=== PATIENT | female | born 1980 | race Caucasian/White ===

== ENCOUNTER 2016-09-03 07:59 | Inpatient (IN) | payer MEDICAID ==
[~2016-09-03 07:59] MED LIST: Morphine 2 MG/ML Syringe IVPUSH PRN; Ondansetron 4 MG Tab.DIS PO PRN; Ondansetron 4 MG/2 ML SDV IVPUSH PRN; Promethazine 25 MG Tab PO PRN; diphenhydrAMINE 25 MG Cap PO PRN
[2016-09-03] MEDS ORDERED: Bupivacaine 0.25%/EPINEPHrine 1:200,000 10 ML SDV INJECT ONE (08:00)
[2016-09-03] MEDS ORDERED: ceFAZolin 2 GM in Premix Bag 1 BAG IV ONE (08:00)
[2016-09-03] MEDS ORDERED: fentaNYL 250 MCG/5 ML SDV ONE ×2 (08:32→11:11)
[2016-09-03] MEDS: Lactated Ringers 1,000 ML IV SCH (08:34)
--- NOTE | 2016-09-03 09:03 | PCM.PREANE ---
Preanesthetic Assessment - Anesthesia/Transfusion/Family Hx Anesthesia History: Prior Anesthesia Without Reaction Other Type of Anesthesia Reaction Comment: Denies any known problem with 1 prior anesthesia Family History of Anesthesia Reaction: No Transfusion History: Prior Transfusion Without Reaction Intubation History: Unknown - Review of Systems General: No Symptoms Pulmonary: No Symptoms Cardiovascular: No Symptoms Gastrointestinal: No symptoms Neurological: No Symptoms Other: Reports: None - Physical Assessment O2 Sat by Pulse Oximetry: 99 Respiratory Rate: 16 Vital Signs: Last Vital Signs Temp 36.3 C 09/03/16 08:32 Pulse 80 09/03/16 08:32 Resp 16 09/03/16 08:32 BP 137/82 09/03/16 08:32 Pulse Ox 99 09/03/16 08:32 Height: 1.63 m Weight: 101.605 kg ASA Class: 2 Mental Status: Alert & Oriented x3 Airway Class: Mallampati = 2 Dentition: Reports: Normal Dentition Thyro-Mental Finger Breadths: 3 Mouth Opening Finger Breadths: 3 ROM/Head Extension: Full Lungs: Clear to auscultation, Normal respiratory effort Cardiovascular: Regular Rate, Regular Rhythm - Lab Values: Laboratory Last Values Urine HCG, Qual NEGATIVE (NEGATIVE) 09/03/16 08:03 - Allergies Allergies/Adverse Reactions: Allergies Allergy/AdvReac Type Severity Reaction Status Date / Time Clear IV tape Allergy Itching Uncoded 04/12/15 11:32 MRI Contrast Allergy Hives Uncoded 11/07/14 14:00 Oxycodone Allergy Dizziness Uncoded 04/12/15 11:32 - Blood Blood Available: No - Anesthesia Plan Pre-Op Medication Ordered: None - Acknowledgements Anesthesia Type Planned: General Anesthesia Pt an Appropriate Candidate for the Planned Anesthesia: Yes Alternatives and Risks of Anesthesia Discussed w Pt/Guardian: Yes Pt/Guardian Understands and Agrees with Anesthesia Plan: Yes PreAnesthesia Questionnaire HEENT History: Reports: Other (See Below) Other HEENT History: wears glasses Gastrointestinal History: Reports: Chronic Constipation, Other (See Below) Other Gastrointestinal History: occasional heartburn 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 OB/BYN History: 6 NVD Musculoskeletal History: Reports: Other (See Below) (some back pain) Psychiatric History: Reports: Anxiety Endocrine/Metabolic History: Reports: Obesity/BMI 30+ Hematologic History: Reports: Anemia, Blood Transfusion(s) Dermatologic History: - Past Surgical History Head Surgeries/Procedures: Reports: None GI Surgical History: Reports: Hernia Repair/Other (umbilical) Other GI Surgeries/Procedures: Umbilical Hernia Repair Female Surgical History: Reports: Tubal Ligation, Other (See Below) Other Female Surgeries/Procedures: yanet breast reduction Male Surgical History: Other Endocrine Surgeries/Procedures: hx: diabetes in my immediate family - SUBSTANCE USE Smoking Status *Q: Never Smoker Recreational Drug Use History: No - HOME MEDS Home Medications: Home Meds Ferrous Sulfate [Iron] 325 mg PO DAILY 11/07/14 [History] LORazepam 0.5 mg PO ASDIRECTED PRN 04/12/15 [History] Docusate Sodium [Colace] 1 tab PO BID PRN 09/01/16 [History] - CURRENT (IN HOUSE) MEDS Current Meds: Current Medications Hydrocodone Bitart/Acetaminophen ([place] 325-5 Mg) 1 tab PO Q4H PRN PRN Reason: Pain Cephalexin (Keflex) 500 mg PO Q6HR BHAVESH Diphenhydramine HCl (Benadryl) 25 mg PO Q6H PRN PRN Reason: Itching Lactated Ringer's (Ringers, Lactated) 1,000 mls @ 125 mls/hr IV ASDIRECTED BHAVESH Last Admin: 09/03/16 08:34 Dose: 125 mls/hr Morphine Sulfate (Morphine) 1 mg IVPUSH Q2H PRN PRN Reason: Pain Ondansetron HCl (Zofran Odt) 4 mg PO Q6H PRN PRN Reason: Nausea/Vomiting Ondansetron HCl (Zofran) 4 mg IVPUSH Q6H PRN PRN Reason: Nausea/Vomiting Promethazine HCl (Phenergan) 25 mg PO Q6H PRN PRN Reason: Nausea/Vomiting Discontinued Medications Bupivacaine HCl/Epinephrine Bitart (Marcaine 0.25%/Epinephrine 1:200,000) 30 ml INJECT ONETIME ONE Stop: 09/03/16 08:01 Fentanyl (Sublimaze) Confirm Administered Dose 250 mcg .ROUTE .STK-MED ONE Stop: 09/03/16 08:33 Cefazolin Sodium/Dextrose 2 gm (/ Premix) 50 mls @ 100 mls/hr IV ONETIME ONE Stop: 09/03/16 08:29
[2016-09-03] MEDS ORDERED: Bupivacaine Liposome 1.3% 20 ML SDV ONE (09:10)
[2016-09-03] MEDS ORDERED: Lidocaine 2% 5 ML SDV ONE (09:24)
[2016-09-03] MEDS ORDERED: Ondansetron 4 MG/2 ML SDV ONE (09:25)
[2016-09-03] MEDS ORDERED: Propofol 200 MG/20 ML SDV ONE ×2 (09:25→11:23)
[2016-09-03] MEDS ORDERED: Midazolam 1 MG/ML 2 ML SDV ONE (09:25)
[2016-09-03] MEDS ORDERED: Mineral Oil/Petrolatum Ophth Oint 3.5 GM Tube ONE (10:13)
[2016-09-03] MEDS ORDERED: HYDROmorphone 2 MG/ML Syringe ONE ×2 (11:23→15:28)
[2016-09-03] MEDS ORDERED: HYDROmorphone 2 MG/ML Syringe IVPUSH ONE (12:03)
[2016-09-03] MEDS ORDERED: fentaNYL 100 MCG/2 ML SDV ONE (12:32)
[2016-09-03] MEDS ORDERED: Octyl 2-Cyanoacrylate 1 Tube ONE (13:32)
[2016-09-03] MEDS: fentaNYL 100 MCG/2 ML SDV IVPUSH PRN ×2 (15:15→15:20)
[2016-09-03] MEDS: Labetalol 100 MG/20 ML MDV IVPUSH PRN ×2 (16:00→16:10)
--- NOTE | 2016-09-03 16:14 | PCM.POSTAN ---
POST ANESTHESIA ASSESSMENT - MENTAL STATUS Mental Status: alert, oriented - VITAL SIGNS Pulse Rate: 85 SaO2: 94 Blood Pressure: 142/85 - RESPIRATORY Respiratory Status: respiratory rate WNL, airway patent, O2 saturation stable, supplemental oxygen (4L per NC) - CARDIOVASCULAR CV Status: pulse rate WNL, blood pressure stable - GASTROINTESTINAL GI Status: no symptoms - PAIN Pain Score: 0 (Pt awakes to voice, but comfortably rests when left alone) - POST OP HYDRATION Hydration Status: adequate & stable - OBSERVATIONS Free Text/Narrative:: Pt's pain is well under control and BP stable after total of 20mg of IV Labetalol. No nausea at this time.
--- NOTE | 2016-09-03 16:26 | PCM.OPNOTE ---
- General Post-Op/Procedure Note Date of Surgery/Procedure: 09/03/16 Operative Procedure(s): panniculectomy with umbilicoplasty Pre Op Diagnosis: abdominal pannus, back pain, rashing, excess skin Post-Op Diagnosis: Same Anesthesia Technique: General ET tube, Local Primary Surgeon: Elena Dhillon Anesthesia Provider: Felicity Granger Seed Analyst: Tiffany Parish Surgical Drain/Tube Type: Ha Wilhelm Drain (2 size 10) Complications: None Condition: Good Free Text/Narrative:: Intake & Output 09/03/16 09/03/16 09/03/16 07:59 15:59 23:59 Output Total 30 Balance -30
[2016-09-03] MEDS: Cephalexin 500 MG Cap PO SCH ×2 (17:55→19:36)
[2016-09-03] MEDS: Acetaminophen/HYDROcodone 325-5 MG Tab PO PRN (21:04)
--- NOTE | 2016-09-03 23:20 | OR ---
SURGEON: RAFAEL ERWIN MD DATE OF PROCEDURE: 09/03/2016 PREOPERATIVE DIAGNOSIS: Abdominal pannus with back pain, rashing, and excess skin. POSTOP DIAGNOSIS: Abdominal pannus with back pain, loss of domain, rashing, and excess skin. PROCEDURES: Panniculectomy with umbilicoplasty. ANESTHESIA: General, ET tube and local anesthesia. TALENT ACQUISITION ASSOCIATE: MOISÉS Benedict. INDICATIONS: Ms. Reyes is a 35-year-old female with significant abdominal pannus and diastasis causing significant pain in her lower back and rashing with chronic infection. She initially had her hernia repaired by a general surgeon, so we could proceed with excision of the excess skin. The hernia repair did not fix her pain in her lower back. In addition, she has also had a breast reduction, which did help with the upper back and neck and shoulder pain, but it has not helped with her lower back pain. She also continues to have the rashing in the intertriginous areas. Risks and benefits of panniculectomy with umbilicoplasty were discussed with her in detail at several different visits. All questions were answered. Informed consent was obtained. Risks were including, but not limited to, bleeding, infection, damage to underlying or overlying structures, possible need for future interventions, and possible scarring. PROCEDURE IN DETAIL: After informed consent was obtained and placed on the chart, the patient was brought to the operating theater and laid in the supine position. After adequate general anesthetic was obtained, the area was prepped and draped in a normal fashion and symmetry was appreciated on the table. Preoperative markings were undertaken using pinch test and measurements. Once adequately marked and the patient was prepped and draped in normal fashion, a time-out had been completed to confirm side and site. Attention was paid to the lower abdominal incision. A 10 blade was used to dissect through the lower abdominal skin and dissection was carried through the fat and subcutaneous tissues using Bovie electrocautery. The abdominal wall was reached and dissection was carried superficial to this to elevate the abdominal skin flap. The umbilicus was isolated taking care to leave a significant cuff of tissues considering the previous hernia surgery underlying this. This was done to preserve the blood supply as robust as possible. Once the skin flaps had been dissected with isolation of the umbilicus, the area was copiously irrigated. Meticulous hemostasis was obtained. Attention was then paid to 0 ethibond [id number] sutures under minimal tension as possible in order to repair the diastasis and loss of domain. At the periumbilical area, this was not possible without significant tension, and thus the abdominal wall fascia was released over the oblique muscles, and the periumbilical fascia was used to bridge the gap between the 2 medial edges of the rectus muscle. This resulted in competence with good viability of the umbilical stalk. Once this had been completed and tension appreciated to be within normal limits, the area was copiously irrigated and plication sutures with 2.0 pds were used from the superior lateral rectus going from the subcutaneous tissues to the muscle in order to close the space. This was done in a running fashion on both sides of the rectus muscle and this was tied at the top and bottom of the running suture. Once this was completed, attention was then paid to closure of the skin, which was done with 2-0 PDS sutures in a deep fashion, 3-0 Monocryl for the dermis, and a running 4-0 subcuticular for the skin. Prior to closure, the patient had been injected with 20 mL of Exparel and two size 10 LIZ drains had been placed lower in the incision. These were sutured in place using 3-0 Prolene stitches at the lateral margins. Once adequately closed, the wounds were dressed with Steri-Strips and attention was then paid to isolation of the umbilicus. The incision was then made and dissection was carried down through the subcutaneous tissues and the subcutaneous fat to locate the umbilical stalk. This was brought through and sutured in place using deep 4-0 Monocryl stitches and Dermabond for the skin. The umbilical stalk had excellent viability at the end of the case. This was dressed then with a Tegaderm border. The lower incision was dressed with fluffs and tape and an abdominal binder. The patient tolerated the procedure well. All counts needles were correct at the end the case. FOLLOWUP INSTRUCTIONS: The patient will be maintained in the hospital for pain control. She will be re - evaluated for discharge daily. CHAR / RIC /[id number] DANIELLA
[2016-09-04] MEDS: Cephalexin 500 MG Cap PO SCH ×5 (00:53→23:15)
[2016-09-04] MEDS: Acetaminophen/HYDROcodone 325-5 MG Tab PO PRN ×5 (01:06→20:45)
[2016-09-04] MEDS: Lactated Ringers 1,000 ML IV SCH (01:08)
--- NOTE | 2016-09-04 02:38 | PCM48HPAN ---
Post Anesthesia Note - EVALUATION WITHIN 48HRS OF ANESTHETIC Vital Signs in Normal Range: Yes Patient Participated in Evaluation: Yes Respiratory Function Stable: Yes Airway Patent: Yes Cardiovascular Function Stable: Yes Hydration Status Stable: Yes Pain Control Satisfactory: Yes Nausea and Vomiting Control Satisfactory: Yes Mental Status Recovered: Yes - COMMENTS/OBSERVATIONS Free Text/Narrative:: No apparent anesthesia complications.
--- NOTE | 2016-09-04 17:58 | PCM.PN ---
- General Info Date of Service: 09/04/16 Admission Dx/Problem (Free Text): s/p abdominoplasty pod 1 Subjective Update: still with significant pain but otherwise improving function. eating well and no nausea aside from with pain medication. ambulating and tolerating po. Functional Status: Reports: tolerating diet, ambulating, urinating - Review of Systems General: Reports: No Symptoms HEENT: Reports: no symptoms Pulmonary: Reports: no symptoms Gastrointestinal: Reports: Abdominal pain, Nausea Musculoskeletal: Reports: no symptoms Skin: Reports: other (wound healing well so far. ) Neurological: Reports: No Symptoms (but still sleepy from surgery) Psychiatric: Reports: no symptoms - Patient Data Vitals - most recent: Last Vital Signs Temp 97.9 F 09/04/16 16:00 Pulse 109 H 09/04/16 16:00 Resp 22 H 09/04/16 16:00 BP 145/88 H 09/04/16 16:00 Pulse Ox 93 L 09/04/16 16:00 Weight - most recent: 224 lb 0.011 oz I&O - last 24 hours: Intake & Output 09/04/16 09/04/16 09/04/16 07:59 15:59 23:59 Intake Total 2057 650 858 Output Total 644 36 5361 Balance 1092 605 -675 Med Orders - Current: Current Medications Hydrocodone Bitart/Acetaminophen ([place] 325-5 Mg) 1 tab PO Q4H PRN PRN Reason: Pain Last Admin: 09/04/16 15:56 Dose: 1 tab Cephalexin (Keflex) 500 mg PO Q6HR BHAVESH Last Admin: 09/04/16 11:05 Dose: 500 mg Diphenhydramine HCl (Benadryl) 25 mg PO Q6H PRN PRN Reason: Itching Enoxaparin Sodium (Lovenox) 40 mg SUBCUT Q24H BHAVESH Lactated Ringer's (Ringers, Lactated) 1,000 mls @ 125 mls/hr IV ASDIRECTED [facility] Last Admin: 09/04/16 01:08 Dose: 125 mls/hr Morphine Sulfate (Morphine) 1 mg IVPUSH Q2H PRN PRN Reason: Pain Ondansetron HCl (Zofran Odt) 4 mg PO Q6H PRN PRN Reason: Nausea/Vomiting Ondansetron HCl (Zofran) 4 mg IVPUSH Q6H PRN PRN Reason: Nausea/Vomiting Last Admin: 09/03/16 18:45 Dose: 4 mg Promethazine HCl (Phenergan) 25 mg PO Q6H PRN PRN Reason: Nausea/Vomiting Last Admin: 09/04/16 00:04 Dose: 25 mg Discontinued Medications Bupivacaine HCl/Epinephrine Bitart ([place] 0.25%/Epinephrine 1:200,000) 30 ml INJECT ONETIME ONE Stop: 09/03/16 08:01 Last Admin: 09/03/16 17:55 Dose: Not Given Bupivacaine Liposome (Exparel) 20 ml .ROUTE .STK-MED ONE Stop: 09/03/16 09:11 Fentanyl (Sublimaze) Confirm Administered Dose 250 mcg .ROUTE .STK-MED ONE Stop: 09/03/16 08:33 Fentanyl (Sublimaze) Confirm Administered Dose 250 mcg .ROUTE .STK-MED ONE Stop: 09/03/16 11:12 Fentanyl (Sublimaze) 50 mcg IVPUSH Q5M PRN PRN Reason: Pain (severe 7-10) Stop: 09/04/16 12:03 Last Admin: 09/03/16 15:20 Dose: 50 mcg Fentanyl (Sublimaze) Confirm Administered Dose 100 mcg .ROUTE .STK-MED ONE Stop: 09/03/16 12:33 Hydromorphone HCl (Dilaudid) Confirm Administered Dose 2 mg .ROUTE .STK-MED ONE Stop: 09/03/16 11:24 Hydromorphone HCl (Dilaudid) 0 mg IVPUSH ONETIME ONE Stop: 09/03/16 12:04 Last Admin: 09/03/16 15:30 Dose: 1 mg Hydromorphone HCl (Dilaudid) Confirm Administered Dose 2 mg .ROUTE .STK-MED ONE Stop: 09/03/16 15:29 Last Admin: 09/03/16 17:55 Dose: Not Given Cefazolin Sodium/Dextrose 2 gm (/ Premix) 50 mls @ 100 mls/hr IV ONETIME ONE Stop: 09/03/16 08:29 Last Admin: 09/03/16 17:55 Dose: Not Given Labetalol HCl (Normodyne) 10 mg IVPUSH .Q10MIN PRN; Protocol PRN Reason: Hypertension Stop: 09/04/16 15:58 Last Admin: 09/03/16 16:10 Dose: 10 mg Lidocaine (Xylocaine-Mpf 2%) Confirm Administered Dose 10 ml .ROUTE .STK-MED ONE Stop: 09/03/16 09:25 Midazolam HCl (Versed 1 Mg/Ml) Confirm Administered Dose 2 mg .ROUTE .STK-MED ONE Stop: 09/03/16 09:26 Mineral Oil/White Petrolatum (Lacri-Lube S.O.P Oint) Confirm Administered Dose 3.5 gm .ROUTE .STK-MED ONE Stop: 09/03/16 10:14 Octyl Cyanoacrylate (Dermabond Advance) Confirm Administered Dose 1 applic .ROUTE .STK-MED ONE Stop: 09/03/16 13:33 Ondansetron HCl (Zofran) Confirm Administered Dose 8 mg .ROUTE .STK-MED ONE Stop: 09/03/16 09:26 Propofol (Diprivan 20 Ml) Confirm Administered Dose 400 mg .ROUTE .STK-MED ONE Stop: 09/03/16 09:26 Propofol (Diprivan 20 Ml) Confirm Administered Dose 400 mg .ROUTE .STK-MED ONE Stop: 09/03/16 11:24 - Exam General: alert, oriented, cooperative HEENT: EOMI Abdomen: soft Extremities: no edema Skin: warm, dry Wound/Incisions: healing well, dressing dry and intact, drainage (in TORY is serous. ) Neurological: no new focal deficit - Problem List & Annotations (1) Status post abdominoplasty SNOMED Code(s): 897761495, 758487421 Code(s): Z98.890 - OTHER SPECIFIED POSTPROCEDURAL STATES Status: Acute Priority: High Current Visit: Yes - Problem List Review Problem List Initiated/Reviewed/Updated: Yes - My Orders Last 24 Hours: My Active Orders 09/03/16 18:00 Ambulate [RC] ASDIRECTED 09/04/16 18:00 Enoxaparin [Lovenox] 40 mg SUBCUT Q24H - Plan Plan:: doing well pod 1 aside from pain control. continue hospital cares hep lock fluids IV and po pain control ancef start lovenox for ppx ambulate binder tory cares ok to shower
[2016-09-04] MEDS: Enoxaparin 40 MG/0.4 ML Syringe SUBCUT SCH (18:43)
[2016-09-05] MEDS: Acetaminophen/HYDROcodone 325-5 MG Tab PO PRN ×5 (03:33→20:41)
[2016-09-05] MEDS: Cephalexin 500 MG Cap PO SCH ×4 (05:21→23:05)
--- NOTE | 2016-09-05 07:51 | PCM.PN ---
- General Info Date of Service: 09/05/16 Admission Dx/Problem (Free Text): s/p abdominoplasty pod 2 Subjective Update: POD 2 s/p panniculectomy with umbilicoplasty. Feeling ok but coughed up some blood yesterday once and this am early. No shortness of breath. Eating well. No nausea. Has not had a BM yet and cannot recall passing gas. We will get a chest xray this am, though it is most likely atelectasis. We will also get a set of labs to check. We discussed colace and miralax for the bm. Abdomen is tender from surgery but minimally distended and she is hungry and eating without upper GI issues. Functional Status: Reports: tolerating diet, ambulating, urinating, incentive spirometry. Denies: pain controlled - Review of Systems General: Reports: No Symptoms HEENT: Reports: no symptoms Pulmonary: Reports: hemoptysis. Denies: shortness of breath, pleuritic chest pain, cough, sputum Cardiovascular: Denies: Chest Pain, Dyspnea on Exertion, Edema Musculoskeletal: Reports: no symptoms Skin: Reports: other (wund) Neurological: Reports: No Symptoms Psychiatric: Reports: no symptoms - Patient Data Vitals - most recent: Last Vital Signs Temp 99.5 F 09/05/16 04:15 Pulse 100 09/05/16 04:45 Resp 18 09/05/16 03:58 BP 133/77 09/05/16 03:58 Pulse Ox 91 L 09/05/16 03:58 Weight - most recent: 224 lb 0.011 oz I&O - last 24 hours: Intake & Output 09/04/16 09/04/16 09/05/16 15:59 23:59 07:59 Intake Total 527 238 6649 Output Total 45 8733 1720 Balance 605 -675 -120 Med Orders - Current: Current Medications Hydrocodone Bitart/Acetaminophen ([place] 325-5 Mg) 1 tab PO Q4H PRN PRN Reason: Pain Last Admin: 09/05/16 03:33 Dose: 1 tab Cephalexin (Keflex) 500 mg PO Q6HR BHAVESH Last Admin: 09/05/16 05:21 Dose: 500 mg Diphenhydramine HCl (Benadryl) 25 mg PO Q6H PRN PRN Reason: Itching Enoxaparin Sodium (Lovenox) 40 mg SUBCUT Q24H [facility] Last Admin: 09/04/16 18:43 Dose: 40 mg Lactated Ringer's (Ringers, Lactated) 1,000 mls @ 125 mls/hr IV ASDIRECTED [facility] Last Admin: 09/04/16 01:08 Dose: 125 mls/hr Morphine Sulfate (Morphine) 1 mg IVPUSH Q2H PRN PRN Reason: Pain Ondansetron HCl (Zofran Odt) 4 mg PO Q6H PRN PRN Reason: Nausea/Vomiting Ondansetron HCl (Zofran) 4 mg IVPUSH Q6H PRN PRN Reason: Nausea/Vomiting Last Admin: 09/03/16 18:45 Dose: 4 mg Promethazine HCl (Phenergan) 25 mg PO Q6H PRN PRN Reason: Nausea/Vomiting Last Admin: 09/04/16 00:04 Dose: 25 mg Discontinued Medications Bupivacaine HCl/Epinephrine Bitart ([place] 0.25%/Epinephrine 1:200,000) 30 ml INJECT ONETIME ONE Stop: 09/03/16 08:01 Last Admin: 09/03/16 17:55 Dose: Not Given Bupivacaine Liposome (Exparel) 20 ml .ROUTE .STK-MED ONE Stop: 09/03/16 09:11 Fentanyl (Sublimaze) Confirm Administered Dose 250 mcg .ROUTE .STK-MED ONE Stop: 09/03/16 08:33 Fentanyl (Sublimaze) Confirm Administered Dose 250 mcg .ROUTE .STK-MED ONE Stop: 09/03/16 11:12 Fentanyl (Sublimaze) 50 mcg IVPUSH Q5M PRN PRN Reason: Pain (severe 7-10) Stop: 09/04/16 12:03 Last Admin: 09/03/16 15:20 Dose: 50 mcg Fentanyl (Sublimaze) Confirm Administered Dose 100 mcg .ROUTE .STK-MED ONE Stop: 09/03/16 12:33 Hydromorphone HCl (Dilaudid) Confirm Administered Dose 2 mg .ROUTE .STK-MED ONE Stop: 09/03/16 11:24 Hydromorphone HCl (Dilaudid) 0 mg IVPUSH ONETIME ONE Stop: 09/03/16 12:04 Last Admin: 09/03/16 15:30 Dose: 1 mg Hydromorphone HCl (Dilaudid) Confirm Administered Dose 2 mg .ROUTE .STK-MED ONE Stop: 09/03/16 15:29 Last Admin: 09/03/16 17:55 Dose: Not Given Cefazolin Sodium/Dextrose 2 gm (/ Premix) 50 mls @ 100 mls/hr IV ONETIME ONE Stop: 09/03/16 08:29 Last Admin: 09/03/16 17:55 Dose: Not Given Labetalol HCl (Normodyne) 10 mg IVPUSH .Q10MIN PRN; Protocol PRN Reason: Hypertension Stop: 09/04/16 15:58 Last Admin: 09/03/16 16:10 Dose: 10 mg Lidocaine (Xylocaine-Mpf 2%) Confirm Administered Dose 10 ml .ROUTE .STK-MED ONE Stop: 09/03/16 09:25 Midazolam HCl (Versed 1 Mg/Ml) Confirm Administered Dose 2 mg .ROUTE .STK-MED ONE Stop: 09/03/16 09:26 Mineral Oil/White Petrolatum (Lacri-Lube S.O.P Oint) Confirm Administered Dose 3.5 gm .ROUTE .STK-MED ONE Stop: 09/03/16 10:14 Octyl Cyanoacrylate (Dermabond Advance) Confirm Administered Dose 1 applic .ROUTE .STK-MED ONE Stop: 09/03/16 13:33 Ondansetron HCl (Zofran) Confirm Administered Dose 8 mg .ROUTE .STK-MED ONE Stop: 09/03/16 09:26 Propofol (Diprivan 20 Ml) Confirm Administered Dose 400 mg .ROUTE .STK-MED ONE Stop: 09/03/16 09:26 Propofol (Diprivan 20 Ml) Confirm Administered Dose 400 mg .ROUTE .STK-MED ONE Stop: 09/03/16 11:24 - Exam Quality Assessment: DVT prophylaxis (lovenox started POD 1). No: supplemental oxygen, urine catheter General: alert, oriented, cooperative HEENT: EOMI Lungs: Clear to auscultation, Normal respiratory effort Cardiovascular: Regular Rate Abdomen: soft, no tenderness (aside from surgical site. ) Extremities: no edema, no calf tenderness Skin: warm, dry Wound/Incisions: dressing dry and intact, drainage (in TORY is serous. ), other ( abdomen lower area is swollen but without signs of infection. Seroma accumulation and skin swelling. Minimal abdominal distension underneath at this time. Still soft and tender more at the midline from rectus plication sutures. ) Neurological: no new focal deficit Psy/Mental Status: alert - Problem List & Annotations (1) Status post abdominoplasty SNOMED Code(s): 322124745, [id number] Code(s): Z98.890 - OTHER SPECIFIED POSTPROCEDURAL STATES Status: Acute Priority: High Current Visit: Yes - Problem List Review Problem List Initiated/Reviewed/Updated: Yes - My Orders Last 24 Hours: My Active Orders 09/04/16 18:00 Enoxaparin [Lovenox] 40 mg SUBCUT Q24H 09/05/16 08:00 Chest 2V [CR] Routine BASIC METABOLIC PANEL,BMP [CHEM] Routine CBC WITH AUTO DIFF [HEME] Routine - Plan Plan:: pod 2 still needing pain control and now with mild hemoptysis and fever. continue hospital cares IV and po pain control ancef start lovenox for ppx ambulate at least TID binder tory cares ok to shower labs and chest xray pending - likely atelectasis - encourage more IS use.
[2016-09-05 09:04] LABS: CHLORIDE,CL 101 mmol/L (98-110); SODIUM,NA 137 mmol/L (136-146)
--- NOTE | 2016-09-05 17:44 | CR ---
EXAM DATE: 09/05/16 PATIENT'S AGE: 35 Patient: DIAMOND MITCHELL Facility: [place], [place] Site . Site : 1980 Study: XRay Chest [id number] 8:48:40 AM Ordering Physician: Jacquie Parker Final Report: HISTORY: Hemoptysis postop. Comparison: None. Technique: Chest, 2 views. Findings: Heart size and pulmonary vasculature are within normal limits. There are interstitial opacities present in both lungs, particularly at the left lung base. This may be secondary to low lung volumes. There is no focal consolidation or pneumothorax. The central airway is normal. Osseous structures are intact. Impression: 1. Low lung volumes, with bilateral interstitial type opacities. 2. Opacities are favored to be secondary to low lung volumes. Alveolar hemorrhage is an additional consideration given the history. Radiographic followup is advised. Dictated by Red Alvarez MD @ Sep 05 2016 8:50AM (Electronic Signature) Report Signed by Proxy. DANIELLA
[2016-09-05] MEDS: Enoxaparin 40 MG/0.4 ML Syringe SUBCUT SCH (18:11)
[2016-09-06] MEDS: Acetaminophen/HYDROcodone 325-5 MG Tab PO PRN ×4 (01:50→18:01)
[2016-09-06] MEDS: Cephalexin 500 MG Cap PO SCH ×4 (05:01→23:55)
[2016-09-06] MEDS ORDERED: Octyl 2-Cyanoacrylate 1 Tube TOP ONE (08:15)
[2016-09-06 09:19] LABS: CHLORIDE,CL 102 mmol/L (98-110); SODIUM,NA 137 mmol/L (136-146)
--- NOTE | 2016-09-06 10:35 | PCM.PN ---
- General Info Date of Service: 09/06/16 Admission Dx/Problem (Free Text): s/p abdominoplasty pod 3 Subjective Update: Doing better today. Passing gas. Pain improved but still having some difficulties getting up by herself. Ambulating in room and going to the bathroom alot today - likely diuresing post op. Still coughing up some blood tinged stuff - dark in color and nothing today. Functional Status: Reports: tolerating diet, ambulating, urinating, incentive spirometry (using every one hour and increasing volumes. ), other (PAS boots not on currently but flexing calf every hour while sitting. ). Denies: new symptoms - Review of Systems Pulmonary: Reports: no symptoms, sputum. Denies: shortness of breath Cardiovascular: Denies: No Symptoms Gastrointestinal: Reports: Constipation, Flatus. Denies: Abdominal pain, Nausea , Vomiting Genitourinary: Denies: dysuria Skin: Reports: other (wound) Psychiatric: Reports: no symptoms - Patient Data Vitals - most recent: Last Vital Signs Temp 99.0 F 09/06/16 08:00 Pulse 107 H 09/06/16 08:00 Resp 16 09/06/16 08:00 BP 146/93 H 09/06/16 08:00 Pulse Ox 92 L 09/06/16 08:00 Weight - most recent: 224 lb 0.011 oz I&O - last 24 hours: Intake & Output 09/05/16 09/06/16 09/06/16 23:59 07:59 15:59 Intake Total 700 800 Output Total 2000 1870 Balance -1300 -1070 Lab Results last 24 hrs: Laboratory Results - last 24 hr 09/06/16 09/06/16 Range/Units 08:32 08:32 WBC 10.91 (4.0-11.0) K/uL RBC 4.40 (4.30-5.90) M/uL Hgb 9.4 L (12.0-16.0) g/dL Hct 30.6 L (36.0-46.0) % MCV 69.5 L (80.0-98.0) fL MCH 21.4 L (27.0-32.0) pg MCHC 30.7 L (31.0-37.0) g/dL RDW Std Deviation 43.4 (28.0-62.0) fl RDW Coeff of Nadege 17 H (11.0-15.0) % Plt Count 225 (150-400) K/uL MPV 9.40 (7.40-12.00) fL Neut % (Auto) 73.0 (48.0-80.0) % Lymph % (Auto) 18.6 (16.0-40.0) % Johnson % (Auto) 5.0 (0.0-15.0) % Eos % (Auto) 3.1 (0.0-7.0) % Baso % (Auto) 0.3 (0.0-1.5) % Neut # (Auto) 8.0 H (1.4-5.7) K/uL Lymph # (Auto) 2.0 (0.6-2.4) K/uL Johnson # (Auto) 0.6 (0.0-0.8) K/uL Eos # (Auto) 0.3 (0.0-0.7) K/uL Baso # (Auto) 0.0 (0.0-0.1) K/uL Nucleated RBC % 0.0 /100WBC Nucleated RBCs # 0 K/uL Sodium 137 (136-146) mmol/L Potassium 3.3 L (3.5-5.1) mmol/L Chloride 102 (98-110) mmol/L Carbon Dioxide 26 (21-31) mmol/L BUN 7 (6.0-23.0) mg/dL Creatinine 0.7 (0.6-1.5) mg/dL Est Cr Clr Drug Dosing 98.50 mL/min Estimated GFR (MDRD) > 60.0 ml/min Glucose 150 H (60-110) mg/dL Calcium 8.0 L (8.8-10.8) mg/dL Med Orders - Current: Current Medications Hydrocodone Bitart/Acetaminophen ([place] 325-5 Mg) 1 tab PO Q4H PRN PRN Reason: Pain Last Admin: 09/06/16 07:56 Dose: 1 tab Cephalexin (Keflex) 500 mg PO Q6HR BHAVESH Last Admin: 09/06/16 05:01 Dose: 500 mg Diphenhydramine HCl (Benadryl) 25 mg PO Q6H PRN PRN Reason: Itching Last Admin: 06/16/17 09:45 Dose: 25 mg Enoxaparin Sodium (Lovenox) 40 mg SUBCUT Q24H [facility] Last Admin: 09/05/16 18:11 Dose: 40 mg Lactated Ringer's (Ringers, Lactated) 1,000 mls @ 125 mls/hr IV ASDIRECTED [facility] Last Admin: 09/04/16 01:08 Dose: 125 mls/hr Morphine Sulfate (Morphine) 1 mg IVPUSH Q2H PRN PRN Reason: Pain Ondansetron HCl (Zofran Odt) 4 mg PO Q6H PRN PRN Reason: Nausea/Vomiting Ondansetron HCl (Zofran) 4 mg IVPUSH Q6H PRN PRN Reason: Nausea/Vomiting Last Admin: 09/03/16 18:45 Dose: 4 mg Promethazine HCl (Phenergan) 25 mg PO Q6H PRN PRN Reason: Nausea/Vomiting Last Admin: 09/04/16 00:04 Dose: 25 mg Discontinued Medications Bupivacaine HCl/Epinephrine Bitart (Marcaine 0.25%/Epinephrine 1:200,000) 30 ml INJECT ONETIME ONE Stop: 09/03/16 08:01 Last Admin: 09/03/16 17:55 Dose: Not Given Bupivacaine Liposome (Exparel) 20 ml .ROUTE .STK-MED ONE Stop: 09/03/16 09:11 Fentanyl (Sublimaze) Confirm Administered Dose 250 mcg .ROUTE .STK-MED ONE Stop: 09/03/16 08:33 Fentanyl (Sublimaze) Confirm Administered Dose 250 mcg .ROUTE .STK-MED ONE Stop: 09/03/16 11:12 Fentanyl (Sublimaze) 50 mcg IVPUSH Q5M PRN PRN Reason: Pain (severe 7-10) Stop: 09/04/16 12:03 Last Admin: 09/03/16 15:20 Dose: 50 mcg Fentanyl (Sublimaze) Confirm Administered Dose 100 mcg .ROUTE .STK-MED ONE Stop: 09/03/16 12:33 Hydromorphone HCl (Dilaudid) Confirm Administered Dose 2 mg .ROUTE .STK-MED ONE Stop: 09/03/16 11:24 Hydromorphone HCl (Dilaudid) 0 mg IVPUSH ONETIME ONE Stop: 09/03/16 12:04 Last Admin: 09/03/16 15:30 Dose: 1 mg Hydromorphone HCl (Dilaudid) Confirm Administered Dose 2 mg .ROUTE .STK-MED ONE Stop: 09/03/16 15:29 Last Admin: 09/03/16 17:55 Dose: Not Given Cefazolin Sodium/Dextrose 2 gm (/ Premix) 50 mls @ 100 mls/hr IV ONETIME ONE Stop: 09/03/16 08:29 Last Admin: 09/03/16 17:55 Dose: Not Given Labetalol HCl (Normodyne) 10 mg IVPUSH .Q10MIN PRN; Protocol PRN Reason: Hypertension Stop: 09/04/16 15:58 Last Admin: 09/03/16 16:10 Dose: 10 mg Lidocaine (Xylocaine-Mpf 2%) Confirm Administered Dose 10 ml .ROUTE .STK-MED ONE Stop: 09/03/16 09:25 Midazolam HCl (Versed 1 Mg/Ml) Confirm Administered Dose 2 mg .ROUTE .STK-MED ONE Stop: 09/03/16 09:26 Mineral Oil/White Petrolatum (Lacri-Lube S.O.P Oint) Confirm Administered Dose 3.5 gm .ROUTE .STK-MED ONE Stop: 09/03/16 10:14 Octyl Cyanoacrylate (Dermabond Advance) Confirm Administered Dose 1 applic .ROUTE .STK-MED ONE Stop: 09/03/16 13:33 Octyl Cyanoacrylate (Dermabond Advance) 2 applic TOP ONETIME ONE Stop: 09/06/16 08:16 Ondansetron HCl (Zofran) Confirm Administered Dose 8 mg .ROUTE .STK-MED ONE Stop: 09/03/16 09:26 Propofol (Diprivan 20 Ml) Confirm Administered Dose 400 mg .ROUTE .STK-MED ONE Stop: 09/03/16 09:26 Propofol (Diprivan 20 Ml) Confirm Administered Dose 400 mg .ROUTE .STK-MED ONE Stop: 09/03/16 11:24 - Exam Quality Assessment: DVT prophylaxis (lovenox) General: alert, oriented, cooperative, no acute distress HEENT: Pupils reactive, EOMI Lungs: Clear to auscultation, Normal respiratory effort Abdomen: soft, tenderness (at the inferior incision and midline. Otherwise doing well. ). No: guarding Extremities: no edema Skin: warm, dry Wound/Incisions: healing well (incision intact with steristrips. No erythema. Swelling/formation as expected post abdominoplasty. ), no drainage (on the steristrips on the incision line. Only in TORY), drainage (serous in TORY's). No: erythema Neurological: no new focal deficit Psy/Mental Status: alert, normal affect, normal mood - Problem List & Annotations (1) Status post abdominoplasty SNOMED Code(s): 088355161, 715886989 Code(s): Z98.890 - OTHER SPECIFIED POSTPROCEDURAL STATES Status: Acute Priority: High Current Visit: Yes - Problem List Review Problem List Initiated/Reviewed/Updated: Yes - My Orders Last 24 Hours: My Active Orders 09/06/16 08:03 Chest 2V [CR] Routine - Plan Plan:: pod 2 still needing pain control and now with mild hemoptysis and fever. continue hospital cares IV and po pain control keflex start lovenox for ppx ambulate at least TID binder tory cares ok to shower labs and chest xray stable today. miralax and colace
[2016-09-06] MEDS: Docusate Sodium 100 MG Cap PO SCH ×2 (11:22→20:50)
[2016-09-06] MEDS: Polyethylene Glycol 3350 Powder 17 GM Packet PO SCH (11:22)
[2016-09-06] MEDS: Enoxaparin 40 MG/0.4 ML Syringe SUBCUT SCH (17:57)
[2016-09-07] MEDS: Acetaminophen/HYDROcodone 325-5 MG Tab PO PRN ×3 (00:06→16:42)
[2016-09-07] MEDS: Cephalexin 500 MG Cap PO SCH ×4 (05:14→23:53)
[2016-09-07] MEDS: Docusate Sodium 100 MG Cap PO SCH ×2 (09:26→20:01)
[2016-09-07] MEDS: Polyethylene Glycol 3350 Powder 17 GM Packet PO SCH (09:26)
[2016-09-07] MEDS ORDERED: LORazepam 0.5 MG Tab PO PRN (11:55)
[2016-09-07] MEDS ORDERED: Docusate Sodium 100 MG Cap PO PRN (11:55)
--- NOTE | 2016-09-07 14:18 | PCM.PN ---
- General Info Date of Service: 09/07/16 Admission Dx/Problem (Free Text): s/p abdominoplasty pod 4 Subjective Update: Doing better today. Passing gas and had a BM. Pain improved and getting up more. Some anxiety today. No more coughing up material. Functional Status: Reports: pain controlled, tolerating diet, ambulating, urinating, incentive spirometry. Denies: new symptoms - Review of Systems General: Reports: No Symptoms HEENT: Reports: no symptoms Pulmonary: Reports: no symptoms. Denies: shortness of breath, cough Musculoskeletal: Reports: no symptoms. Denies: leg pain Skin: Reports: no symptoms (aside from healing surgical sites) Neurological: Reports: No Symptoms Psychiatric: Reports: anxiety - Patient Data Vitals - most recent: Last Vital Signs Temp 97.4 F 09/07/16 12:00 Pulse 94 09/07/16 12:00 Resp 16 09/07/16 12:00 BP 128/76 09/07/16 12:00 Pulse Ox 97 09/07/16 12:00 Weight - most recent: 224 lb 0.011 oz I&O - last 24 hours: Intake & Output 09/06/16 09/07/16 09/07/16 23:59 07:59 15:59 Intake Total 1026 1118 Output Total 1265 2305 Balance -239 -1187 Med Orders - Current: Current Medications Hydrocodone Bitart/Acetaminophen ([place] 325-5 Mg) 1 tab PO Q4H PRN PRN Reason: Pain Last Admin: 09/07/16 06:15 Dose: 1 tab Cephalexin (Keflex) 500 mg PO Q6HR BHAVESH Last Admin: 09/07/16 11:39 Dose: 500 mg Diphenhydramine HCl (Benadryl) 25 mg PO Q6H PRN PRN Reason: Itching Last Admin: 09/05/16 09:45 Dose: 25 mg Docusate Sodium (Colace) 100 mg PO BID BHAVESH Last Admin: 09/07/16 09:26 Dose: 100 mg Docusate Sodium (Colace) 100 mg PO BID PRN PRN Reason: Constipation Enoxaparin Sodium (Lovenox) 40 mg SUBCUT Q24H [facility] Last Admin: 09/06/16 17:57 Dose: 40 mg Lactated Ringer's (Ringers, Lactated) 1,000 mls @ 125 mls/hr IV ASDIRECTED BHAVESH Last Admin: 09/04/16 01:08 Dose: 125 mls/hr Lorazepam (Ativan) 0.5 mg PO ASDIRECTED PRN PRN Reason: Anxiety Last Admin: 09/07/16 12:23 Dose: 0.5 mg Morphine Sulfate (Morphine) 1 mg IVPUSH Q2H PRN PRN Reason: Pain Last Admin: 09/06/16 14:58 Dose: 1 mg Ondansetron HCl (Zofran Odt) 4 mg PO Q6H PRN PRN Reason: Nausea/Vomiting Ondansetron HCl (Zofran) 4 mg IVPUSH Q6H PRN PRN Reason: Nausea/Vomiting Last Admin: 09/03/16 18:45 Dose: 4 mg Polyethylene Glycol (Miralax) 17 gm PO DAILY [facility] Last Admin: 09/07/16 09:26 Dose: 17 gm Promethazine HCl (Phenergan) 25 mg PO Q6H PRN PRN Reason: Nausea/Vomiting Last Admin: 09/04/16 00:04 Dose: 25 mg Discontinued Medications Bupivacaine HCl/Epinephrine Bitart (Marcaine 0.25%/Epinephrine 1:200,000) 30 ml INJECT ONETIME ONE Stop: 09/03/16 08:01 Last Admin: 09/03/16 17:55 Dose: Not Given Bupivacaine Liposome (Exparel) 20 ml .ROUTE .STK-MED ONE Stop: 09/03/16 09:11 Fentanyl (Sublimaze) Confirm Administered Dose 250 mcg .ROUTE .STK-MED ONE Stop: 09/03/16 08:33 Fentanyl (Sublimaze) Confirm Administered Dose 250 mcg .ROUTE .STK-MED ONE Stop: 09/03/16 11:12 Fentanyl (Sublimaze) 50 mcg IVPUSH Q5M PRN PRN Reason: Pain (severe 7-10) Stop: 09/04/16 12:03 Last Admin: 09/03/16 15:20 Dose: 50 mcg Fentanyl (Sublimaze) Confirm Administered Dose 100 mcg .ROUTE .STK-MED ONE Stop: 09/03/16 12:33 Hydromorphone HCl (Dilaudid) Confirm Administered Dose 2 mg .ROUTE .STK-MED ONE Stop: 09/03/16 11:24 Hydromorphone HCl (Dilaudid) 0 mg IVPUSH ONETIME ONE Stop: 09/03/16 12:04 Last Admin: 09/03/16 15:30 Dose: 1 mg Hydromorphone HCl (Dilaudid) Confirm Administered Dose 2 mg .ROUTE .STK-MED ONE Stop: 09/03/16 15:29 Last Admin: 09/03/16 17:55 Dose: Not Given Cefazolin Sodium/Dextrose 2 gm (/ Premix) 50 mls @ 100 mls/hr IV ONETIME ONE Stop: 09/03/16 08:29 Last Admin: 09/03/16 17:55 Dose: Not Given Labetalol HCl (Normodyne) 10 mg IVPUSH .Q10MIN PRN; Protocol PRN Reason: Hypertension Stop: 09/04/16 15:58 Last Admin: 09/03/16 16:10 Dose: 10 mg Lidocaine (Xylocaine-Mpf 2%) Confirm Administered Dose 10 ml .ROUTE .STK-MED ONE Stop: 09/03/16 09:25 Midazolam HCl (Versed 1 Mg/Ml) Confirm Administered Dose 2 mg .ROUTE .STK-MED ONE Stop: 09/03/16 09:26 Mineral Oil/White Petrolatum (Lacri-Lube S.O.P Oint) Confirm Administered Dose 3.5 gm .ROUTE .STK-MED ONE Stop: 09/03/16 10:14 Octyl Cyanoacrylate (Dermabond Advance) Confirm Administered Dose 1 applic .ROUTE .STK-MED ONE Stop: 09/03/16 13:33 Octyl Cyanoacrylate (Dermabond Advance) 2 applic TOP ONETIME ONE Stop: 09/06/16 08:16 Last Admin: 09/06/16 18:40 Dose: Not Given Ondansetron HCl (Zofran) Confirm Administered Dose 8 mg .ROUTE .STK-MED ONE Stop: 09/03/16 09:26 Propofol (Diprivan 20 Ml) Confirm Administered Dose 400 mg .ROUTE .STK-MED ONE Stop: 09/03/16 09:26 Propofol (Diprivan 20 Ml) Confirm Administered Dose 400 mg .ROUTE .STK-MED ONE Stop: 09/03/16 11:24 - Exam Quality Assessment: DVT prophylaxis (lovenox) General: alert, oriented, cooperative, no acute distress HEENT: Pupils equal, Pupils reactive, EOMI Lungs: Normal respiratory effort Abdomen: soft, no tenderness, no distension (fluid at lower incision - drains in place and serous material. Draining well. Stripped. ) Extremities: no edema, no tenderness/swelling Skin: warm, dry Wound/Incisions: healing well, dressing dry and intact, drainage (only in the TORY = serous) Neurological: no new focal deficit Psy/Mental Status: alert, normal affect, normal mood (no current axiety. took lorazepam) - Problem List & Annotations (1) Status post abdominoplasty SNOMED Code(s): 026323669, [id number] Code(s): Z98.890 - OTHER SPECIFIED POSTPROCEDURAL STATES Status: Acute Priority: High Current Visit: Yes - Problem List Review Problem List Initiated/Reviewed/Updated: Yes - My Orders Last 24 Hours: My Active Orders 09/07/16 11:55 Docusate Sodium [Colace] 100 mg PO BID PRN LORazepam [Ativan] 0.5 mg PO ASDIRECTED PRN - Plan Plan:: pod 4 still much improved. continue hospital cares and plan discharge tomorrow PO pain control keflex - will go home with drains lovenox for ppx - will d/c after discharge ambulate at least TID binder - 3 options and will order another size tomorrow. tory cares - show patient ok to shower miralax and colace lorazepam if needed for anxiety.
[2016-09-07] MEDS: Enoxaparin 40 MG/0.4 ML Syringe SUBCUT SCH (17:23)
[2016-09-08] MEDS: Acetaminophen/HYDROcodone 325-5 MG Tab PO PRN (04:06)
[2016-09-08] MEDS: Cephalexin 500 MG Cap PO SCH ×3 (05:20→18:37)
[2016-09-08] MEDS: Polyethylene Glycol 3350 Powder 17 GM Packet PO SCH (09:19)
[2016-09-08] MEDS: Docusate Sodium 100 MG Cap PO SCH (09:19)
--- NOTE | 2016-09-08 11:40 | CR ---
EXAM DATE: 09/05/16 PATIENT'S AGE: 35 Patient: DIAMOND MITCHELL Facility: [place], [place] Site . Site : 1980 Study: XRay Chest [id number]/17/2017 8:31:44 AM Ordering Physician: Jacquie Parker Final Report: CHEST 2 VIEWS INDICATION: Postoperative atelectasis. COMPARISON: 09/05/2016. IMPRESSION: Stable heart size and vascular pattern. No additional pulmonary consolidation. No pneumothorax or pleural abnormality. No overall change Stable minimal areas of linear atelectasis in the right lower lobe. Dictated by Vinny Figueredo MD @ Sep 06 2016 8:54AM (Electronic Signature) Report Signed by Proxy. DANIELLA
[2016-09-08 15:30] VITALS: BP 139/79
--- NOTE | 2016-09-08 17:51 | PCM.PN ---
- General Info Date of Service: 09/08/16 Admission Dx/Problem (Free Text): s/p abdominoplasty pod 5 Subjective Update: Doing better today. Much improved and ready to go home. No additional symptoms. Getting up and down easily. Functional Status: Reports: pain controlled, tolerating diet, ambulating, urinating, incentive spirometry. Denies: new symptoms - Review of Systems General: Reports: No Symptoms HEENT: Reports: no symptoms Pulmonary: Reports: no symptoms Cardiovascular: Reports: No Symptoms Gastrointestinal: Reports: No symptoms Genitourinary: Reports: no symptoms Musculoskeletal: Reports: no symptoms Skin: Reports: no symptoms Neurological: Reports: Numbness (above incision site as expected. ) Psychiatric: Reports: no symptoms - Patient Data Vitals - most recent: Last Vital Signs Temp 97.6 F 09/08/16 15:29 Pulse 99 09/08/16 15:29 Resp 20 09/08/16 15:29 BP 139/79 09/08/16 15:29 Pulse Ox 95 09/08/16 15:29 Weight - most recent: 224 lb 0.011 oz I&O - last 24 hours: Intake & Output 09/08/16 09/08/16 09/08/16 07:59 15:59 23:59 Intake Total 1430 Output Total 2150 Balance -720 Med Orders - Current: Current Medications Hydrocodone Bitart/Acetaminophen ([employer] 325-5 Mg) 1 tab PO Q4H PRN PRN Reason: Pain Last Admin: 09/08/16 04:06 Dose: 1 tab Cephalexin (Keflex) 500 mg PO Q6HR [facility] Last Admin: 09/08/16 12:13 Dose: 500 mg Diphenhydramine HCl (Benadryl) 25 mg PO Q6H PRN PRN Reason: Itching Last Admin: 09/05/16 09:45 Dose: 25 mg Docusate Sodium (Colace) 100 mg PO BID BHAVESH Last Admin: 09/08/16 09:19 Dose: 100 mg Docusate Sodium (Colace) 100 mg PO BID PRN PRN Reason: Constipation Enoxaparin Sodium (Lovenox) 40 mg SUBCUT Q24H [facility] Last Admin: 09/07/16 17:23 Dose: 40 mg Lactated Ringer's (Ringers, Lactated) 1,000 mls @ 125 mls/hr IV ASDIRECTED [facility] Last Admin: 09/04/16 01:08 Dose: 125 mls/hr Lorazepam (Ativan) 0.5 mg PO ASDIRECTED PRN PRN Reason: Anxiety Last Admin: 09/07/16 12:23 Dose: 0.5 mg Morphine Sulfate (Morphine) 1 mg IVPUSH Q2H PRN PRN Reason: Pain Last Admin: 09/06/16 14:58 Dose: 1 mg Ondansetron HCl (Zofran Odt) 4 mg PO Q6H PRN PRN Reason: Nausea/Vomiting Ondansetron HCl (Zofran) 4 mg IVPUSH Q6H PRN PRN Reason: Nausea/Vomiting Last Admin: 09/03/16 18:45 Dose: 4 mg Polyethylene Glycol (Miralax) 17 gm PO DAILY [facility] Last Admin: 09/08/16 09:19 Dose: 17 gm Promethazine HCl (Phenergan) 25 mg PO Q6H PRN PRN Reason: Nausea/Vomiting Last Admin: 09/04/16 00:04 Dose: 25 mg Discontinued Medications Bupivacaine HCl/Epinephrine Bitart (Marcaine 0.25%/Epinephrine 1:200,000) 30 ml INJECT ONETIME ONE Stop: 09/03/16 08:01 Last Admin: 09/03/16 17:55 Dose: Not Given Bupivacaine Liposome (Exparel) 20 ml .ROUTE .STK-MED ONE Stop: 09/03/16 09:11 Fentanyl (Sublimaze) Confirm Administered Dose 250 mcg .ROUTE .STK-MED ONE Stop: 09/03/16 08:33 Fentanyl (Sublimaze) Confirm Administered Dose 250 mcg .ROUTE .STK-MED ONE Stop: 09/03/16 11:12 Fentanyl (Sublimaze) 50 mcg IVPUSH Q5M PRN PRN Reason: Pain (severe 7-10) Stop: 09/04/16 12:03 Last Admin: 09/03/16 15:20 Dose: 50 mcg Fentanyl (Sublimaze) Confirm Administered Dose 100 mcg .ROUTE .STK-MED ONE Stop: 09/03/16 12:33 Hydromorphone HCl (Dilaudid) Confirm Administered Dose 2 mg .ROUTE .STK-MED ONE Stop: 09/03/16 11:24 Hydromorphone HCl (Dilaudid) 0 mg IVPUSH ONETIME ONE Stop: 09/03/16 12:04 Last Admin: 09/03/16 15:30 Dose: 1 mg Hydromorphone HCl (Dilaudid) Confirm Administered Dose 2 mg .ROUTE .STK-MED ONE Stop: 09/03/16 15:29 Last Admin: 09/03/16 17:55 Dose: Not Given Cefazolin Sodium/Dextrose 2 gm (/ Premix) 50 mls @ 100 mls/hr IV ONETIME ONE Stop: 09/03/16 08:29 Last Admin: 09/03/16 17:55 Dose: Not Given Labetalol HCl (Normodyne) 10 mg IVPUSH .Q10MIN PRN; Protocol PRN Reason: Hypertension Stop: 09/04/16 15:58 Last Admin: 09/03/16 16:10 Dose: 10 mg Lidocaine (Xylocaine-Mpf 2%) Confirm Administered Dose 10 ml .ROUTE .STK-MED ONE Stop: 09/03/16 09:25 Midazolam HCl (Versed 1 Mg/Ml) Confirm Administered Dose 2 mg .ROUTE .STK-MED ONE Stop: 09/03/16 09:26 Mineral Oil/White Petrolatum (Lacri-Lube S.O.P Oint) Confirm Administered Dose 3.5 gm .ROUTE .STK-MED ONE Stop: 09/03/16 10:14 Octyl Cyanoacrylate (Dermabond Advance) Confirm Administered Dose 1 applic .ROUTE .STK-MED ONE Stop: 09/03/16 13:33 Octyl Cyanoacrylate (Dermabond Advance) 2 applic TOP ONETIME ONE Stop: 09/06/16 08:16 Last Admin: 09/06/16 18:40 Dose: Not Given Ondansetron HCl (Zofran) Confirm Administered Dose 8 mg .ROUTE .STK-MED ONE Stop: 09/03/16 09:26 Propofol (Diprivan 20 Ml) Confirm Administered Dose 400 mg .ROUTE .STK-MED ONE Stop: 09/03/16 09:26 Propofol (Diprivan 20 Ml) Confirm Administered Dose 400 mg .ROUTE .STK-MED ONE Stop: 09/03/16 11:24 - Exam Quality Assessment: DVT prophylaxis (lovenox - discontinue at discharge. ) General: alert, oriented HEENT: EOMI Lungs: Normal respiratory effort Abdomen: soft. No: tenderness Extremities: no edema Skin: warm, dry Wound/Incisions: healing well (incisions clean and intact. umbilicus doing well with some peeling glue. ), dressing dry and intact, no drainage, drainage (only in tory - serous and as expected. ) Neurological: no new focal deficit Psy/Mental Status: alert, normal affect - Problem List & Annotations (1) Status post abdominoplasty SNOMED Code(s): 924535547, 181516245 Code(s): Z98.890 - OTHER SPECIFIED POSTPROCEDURAL STATES Status: Acute Priority: High Current Visit: Yes - Problem List Review Problem List Initiated/Reviewed/Updated: Yes - Plan Plan:: pod 5 much improved. discharge today PO pain control keflex - will go home with drains discontinue lovenox. ambulate at least TID binder - 2x fits her well today. tory cares - patient demonstrated ok to shower miralax and colace lorazepam if needed for anxiety
--- NOTE | 2016-09-08 18:01 | PCM.DCSUM1 ---
Discharge Summary - Hospital Course Free Text/Narrative:: The patient was hospitalized last thursday after abdominoplasty and has done well. She initially had difficulties with pain and then had hemoptysis on POD 2 and 3. Labs and chest xrays showed likely hemoptysis and normal post op results. She began aggressive incentive spirometry and has improved significantly. In addition, she has been maintained on Lovenox since POD 1. She had some anxiety yesterday, but much improved today with use of her home medications. Constipation post op as expected but improved with medication and now with normal BM's and passing gas well. overall improved today and ready for discharge on POD 5 - Discharge Data Discharge Date: 09/08/16 Discharge Disposition: Home, Self-Care 01 Condition: Good - Discharge Diagnosis/Problem(s) (1) Status post abdominoplasty SNOMED Code(s): 899720196, [id number] ICD Code: Z98.890 - OTHER SPECIFIED POSTPROCEDURAL STATES Status: Acute Priority: High Current Visit: Yes - Patient Summary/Data Operative Procedure(s) Performed: panniculectomy with umbilicoplasty - Patient Instructions Diet: Usual Diet as Tolerated Activity: Cough & Deep Breathe, No Lifting Over 10 Pounds, No Strenuous Activities, Rest and Relax Today Driving: Do Not Drive (while taking narcotics. ) Showering/Bathing: May Shower Wound/Incision Care: Change Dressing Daily (shower daily and dry the area well. No additional ointment. Maxipads if needed for any drainage. ) Notify Provider of: Fever, Increased Pain, Swelling and Redness, Drainage, Nausea and/or Vomiting - Discharge Plan Home Medications: Home Meds Ferrous Sulfate [Iron] 325 mg PO DAILY 11/07/14 [History] LORazepam 0.5 mg PO ASDIRECTED PRN 04/12/15 [History] Docusate Sodium [Colace] 1 tab PO BID PRN 09/01/16 [History] Escitalopram [Lexapro] 10 mg PO DAILY 09/07/16 [History] Patient Handouts: Acetaminophen; Hydrocodone tablets or capsules, Ondansetron tablets, Cephalexin tablets or capsules Referrals: Elena Dhillon MD [Physician] - 09/15/16 12:45 pm (pls be there 5 to 10 mins early) - General Info Date of Service: 09/08/16 Admission Dx/Problem (Free Text: s/p abdominoplasty pod 5 Subjective Update: Doing better today. Much improved and ready to go home. No additional symptoms. Getting up and down easily. Functional Status: Reports: pain controlled - Patient Data Vitals - Most Recent: Last Vital Signs Temp 97.6 F 09/08/16 15:29 Pulse 99 09/08/16 15:29 Resp 20 09/08/16 15:29 BP 139/79 09/08/16 15:29 Pulse Ox 95 09/08/16 15:29 Weight - Most Recent: 224 lb 0.011 oz I&O - Last 24 hours: Intake & Output 09/08/16 09/08/16 09/08/16 07:59 15:59 23:59 Intake Total 1430 Output Total 2150 Balance -720 Med Orders - Current: Current Medications Hydrocodone Bitart/Acetaminophen ([place] 325-5 Mg) 1 tab PO Q4H PRN PRN Reason: Pain Last Admin: 09/08/16 04:06 Dose: 1 tab Cephalexin (Keflex) 500 mg PO Q6HR BHAVESH Last Admin: 09/08/16 12:13 Dose: 500 mg Diphenhydramine HCl (Benadryl) 25 mg PO Q6H PRN PRN Reason: Itching Last Admin: 09/05/16 09:45 Dose: 25 mg Docusate Sodium (Colace) 100 mg PO BID BHAVESH Last Admin: 09/08/16 09:19 Dose: 100 mg Docusate Sodium (Colace) 100 mg PO BID PRN PRN Reason: Constipation Enoxaparin Sodium (Lovenox) 40 mg SUBCUT Q24H BHAVESH Last Admin: 09/07/16 17:23 Dose: 40 mg Lactated Ringer's (Ringers, Lactated) 1,000 mls @ 125 mls/hr IV ASDIRECTED BHAVESH Last Admin: 09/04/16 01:08 Dose: 125 mls/hr Lorazepam (Ativan) 0.5 mg PO ASDIRECTED PRN PRN Reason: Anxiety Last Admin: 09/07/16 12:23 Dose: 0.5 mg Morphine Sulfate (Morphine) 1 mg IVPUSH Q2H PRN PRN Reason: Pain Last Admin: 09/06/16 14:58 Dose: 1 mg Ondansetron HCl (Zofran Odt) 4 mg PO Q6H PRN PRN Reason: Nausea/Vomiting Ondansetron HCl (Zofran) 4 mg IVPUSH Q6H PRN PRN Reason: Nausea/Vomiting Last Admin: 09/03/16 18:45 Dose: 4 mg Polyethylene Glycol (Miralax) 17 gm PO DAILY BHAVESH Last Admin: 09/08/16 09:19 Dose: 17 gm Promethazine HCl (Phenergan) 25 mg PO Q6H PRN PRN Reason: Nausea/Vomiting Last Admin: 09/04/16 00:04 Dose: 25 mg Discontinued Medications Bupivacaine HCl/Epinephrine Bitart (Marcaine 0.25%/Epinephrine 1:200,000) 30 ml INJECT ONETIME ONE Stop: 09/03/16 08:01 Last Admin: 09/03/16 17:55 Dose: Not Given Bupivacaine Liposome (Exparel) 20 ml .ROUTE .STK-MED ONE Stop: 09/03/16 09:11 Fentanyl (Sublimaze) Confirm Administered Dose 250 mcg .ROUTE .STK-MED ONE Stop: 09/03/16 08:33 Fentanyl (Sublimaze) Confirm Administered Dose 250 mcg .ROUTE .STK-MED ONE Stop: 09/03/16 11:12 Fentanyl (Sublimaze) 50 mcg IVPUSH Q5M PRN PRN Reason: Pain (severe 7-10) Stop: 09/04/16 12:03 Last Admin: 09/03/16 15:20 Dose: 50 mcg Fentanyl (Sublimaze) Confirm Administered Dose 100 mcg .ROUTE .STK-MED ONE Stop: 09/03/16 12:33 Hydromorphone HCl (Dilaudid) Confirm Administered Dose 2 mg .ROUTE .STK-MED ONE Stop: 09/03/16 11:24 Hydromorphone HCl (Dilaudid) 0 mg IVPUSH ONETIME ONE Stop: 09/03/16 12:04 Last Admin: 09/03/16 15:30 Dose: 1 mg Hydromorphone HCl (Dilaudid) Confirm Administered Dose 2 mg .ROUTE .STK-MED ONE Stop: 09/03/16 15:29 Last Admin: 09/03/16 17:55 Dose: Not Given Cefazolin Sodium/Dextrose 2 gm (/ Premix) 50 mls @ 100 mls/hr IV ONETIME ONE Stop: 09/03/16 08:29 Last Admin: 09/03/16 17:55 Dose: Not Given Labetalol HCl (Normodyne) 10 mg IVPUSH .Q10MIN PRN; Protocol PRN Reason: Hypertension Stop: 09/04/16 15:58 Last Admin: 09/03/16 16:10 Dose: 10 mg Lidocaine (Xylocaine-Mpf 2%) Confirm Administered Dose 10 ml .ROUTE .STK-MED ONE Stop: 09/03/16 09:25 Midazolam HCl (Versed 1 Mg/Ml) Confirm Administered Dose 2 mg .ROUTE .STK-MED ONE Stop: 09/03/16 09:26 Mineral Oil/White Petrolatum (Lacri-Lube S.O.P Oint) Confirm Administered Dose 3.5 gm .ROUTE .STK-MED ONE Stop: 09/03/16 10:14 Octyl Cyanoacrylate (Dermabond Advance) Confirm Administered Dose 1 applic .ROUTE .STK-MED ONE Stop: 09/03/16 13:33 Octyl Cyanoacrylate (Dermabond Advance) 2 applic TOP ONETIME ONE Stop: 09/06/16 08:16 Last Admin: 09/06/16 18:40 Dose: Not Given Ondansetron HCl (Zofran) Confirm Administered Dose 8 mg .ROUTE .STK-MED ONE Stop: 09/03/16 09:26 Propofol (Diprivan 20 Ml) Confirm Administered Dose 400 mg .ROUTE .STK-MED ONE Stop: 09/03/16 09:26 Propofol (Diprivan 20 Ml) Confirm Administered Dose 400 mg .ROUTE .STK-MED ONE Stop: 09/03/16 11:24 - Exam General: Reports: alert, oriented HEENT: Reports: Pupils reactive, EOMI Lungs: Reports: Normal respiratory effort Abdomen: Reports: soft Extremities: Reports: no edema Skin: Reports: warm, dry, intact Wound/Incisions: Reports: healing well, drainage (in LIZ drains - 2 ) Neurological: Reports: no new focal deficit Psy/Mental Status: Reports: alert, normal affect, normal mood Discharge Operative/Procedures - Procedures Performed Operations/Procedure Comment: abdominoplasty thursday. *Q Meaningful Use (DIS) - VTE *Q VTE Criteria *Q: VTE Anticoagulation Contraindications: Med/TX not Indicated/Need (had in hospital and discharged ambulatory.) - Stroke *Q Stroke Criteria *Q: Rehabilitation Assessment Contraindication *Q: Med/tx not indicated/need - AMI *Q AMI Criteria *Q: Statin Contraindications AMI *Q: Med/tx not indicated/need
[2016-09-08] MEDS: Enoxaparin 40 MG/0.4 ML Syringe SUBCUT SCH (20:36)
== END 2016-09-08 18:55 | disposition home or self-care (01) | DRG 641 ==
LOC: MW.SDS 07:59 → EDSTATUS 08:00 → MW.SDS 12:00 → MW.MS 12:00 → OBSVTOIN 09-05 09:15 → MW.MS 09-05 09:20
PROVIDERS: ADMIT Plastic Surgery; ATTEND Plastic Surgery
PROC: 0HB7XZZ Excision of Abdomen Skin, External Approach (ICD-10-PCS; principal; 2016-09-03)
PROC: 0W0F0ZZ Alteration of Abdominal Wall, Open Approach (ICD-10-PCS; 2016-09-03)
DX: E65 Localized adiposity (principal); R04.2 Hemoptysis; K59.00 Constipation, unspecified; M54.9 Dorsalgia, unspecified; F41.9 Anxiety disorder, unspecified; Z79.899 Other long term (current) drug therapy; R21 Rash and other nonspecific skin eruption; Z98.890 Other specified postprocedural states
CPT/HCPCS: 17999; 36415; 49250; 71020; 80048; 81025; 85025; 96372; A9270 ×17; G0378 ×2; J1170 ×2; J1650; J2250; J2405 ×2; J3010 ×5; J7120 ×2; 00802; 88305; J2270; J2704

== ENCOUNTER 2016-12-10 10:06 | Day surgery (SDC) | payer MEDICAID ==
[~2016-12-10 10:06] MED LIST changes: +Bupivacaine 0.25%/EPINEPHrine 1:200,000 10 ML SDV INJECT ONE; +Bupivacaine 25%/EPINEPHrine/PF 30 ML ONE; +Lactated Ringers 1,000 ML IV SCH; -Morphine 2 MG/ML Syringe IVPUSH PRN; -Ondansetron 4 MG Tab.DIS PO PRN; -Ondansetron 4 MG/2 ML SDV IVPUSH PRN; -Promethazine 25 MG Tab PO PRN; +ceFAZolin 2 GM in Premix Bag 1 BAG IV ONE; -diphenhydrAMINE 25 MG Cap PO PRN
[2016-12-10] MEDS ORDERED: Acetaminophen/HYDROcodone 325-5 MG Tab PO PRN (11:00)
--- NOTE | 2016-12-10 11:01 | PCM.PREANE ---
Preanesthetic Assessment - Anesthesia/Transfusion/Family Hx Anesthesia History: Prior Anesthesia Without Reaction Other Type of Anesthesia Reaction Comment: Denies any known problem with 1 prior anesthesia Family History of Anesthesia Reaction: No Transfusion History: Prior Transfusion Without Reaction Intubation History: Unknown - Review of Systems General: No Symptoms Pulmonary: No Symptoms Cardiovascular: No Symptoms Gastrointestinal: No Symptoms Neurological: No Symptoms Other: Reports: None - Physical Assessment O2 Sat by Pulse Oximetry: 98 Respiratory Rate: 20 Vital Signs: Last Vital Signs Temp 36.2 C 12/10/16 10:41 Pulse 78 12/10/16 10:41 Resp 20 12/10/16 10:41 BP 167/86 H 12/10/16 10:41 Pulse Ox 98 12/10/16 10:41 Height: 1.63 m Weight: 101.605 kg ASA Class: 2 Mental Status: Alert & Oriented x3 Airway Class: Mallampati = 2 Dentition: Reports: Normal Dentition Thyro-Mental Finger Breadths: 3 Mouth Opening Finger Breadths: 3 ROM/Head Extension: Full Lungs: Clear to Auscultation, Normal Respiratory Effort Cardiovascular: Regular Rate, Regular Rhythm - Lab Values: Laboratory Last Values Urine HCG, Qual NEGATIVE (NEGATIVE) 12/10/16 10:10 - Allergies Allergies/Adverse Reactions: Allergies Allergy/AdvReac Type Severity Reaction Status Date / Time Clear IV tape Allergy Itching Uncoded 11/28/16 14:10 MRI Contrast Allergy Hives Uncoded 11/07/14 14:00 Oxycodone Allergy Dizziness Uncoded 11/28/16 14:10 - Blood Blood Available: No - Anesthesia Plan Pre-Op Medication Ordered: None - Acknowledgements Anesthesia Type Planned: General Anesthesia Pt an Appropriate Candidate for the Planned Anesthesia: Yes Alternatives and Risks of Anesthesia Discussed w Pt/Guardian: Yes Pt/Guardian Understands and Agrees with Anesthesia Plan: Yes PreAnesthesia Questionnaire HEENT History: Reports: Other (See Below) Other HEENT History: wears glasses Gastrointestinal History: Reports: Chronic Constipation, Other (See Below) Other Gastrointestinal History: occasional heartburn 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: Other OB/BYN History: 6 NVD Musculoskeletal History: Reports: Back Pain, Chronic Neurological History: Reports: Other (See Below) Other Neuro History: hx of motion sickness Psychiatric History: Reports: Anxiety Endocrine/Metabolic History: Reports: Obesity/BMI 30+ Hematologic History: Reports: Anemia, Blood Transfusion(s) Dermatologic History: - Past Surgical History Head Surgeries/Procedures: Reports: None GI Surgical History: Reports: Hernia Repair/Other (umbilical hernia repair) Other GI Surgeries/Procedures: Umbilical Hernia Repair Female Surgical History: Reports: Breast Reduction, Tubal Ligation, Other ( See Below) Other Female Surgeries/Procedures: panniculectomy 09/03/16 Other Endocrine Surgeries/Procedures: hx: diabetes in my immediate family - SUBSTANCE USE Smoking Status *Q: Never Smoker Recreational Drug Use History: No - HOME MEDS Home Medications: Home Meds Ferrous Sulfate [Iron] 325 mg PO DAILY 11/07/14 [History] LORazepam 0.5 mg PO TID PRN 04/12/15 [History] Docusate Sodium [Colace] 1 tab PO BID PRN 09/01/16 [History] - CURRENT (IN HOUSE) MEDS Current Meds: Current Medications Hydrocodone Bitart/Acetaminophen ([place] 325-5 Mg) 1 tab PO Q4H PRN PRN Reason: Pain Lactated Ringer's (Ringers, Lactated) 1,000 mls @ 125 mls/hr IV ASDIRECTED [facility] Last Admin: 12/10/16 10:42 Dose: 125 mls/hr Discontinued Medications Bupivacaine HCl/Epinephrine Bitart (Marcaine 0.25%/Epinephrine 1:200,000) 30 ml INJECT ONETIME ONE Stop: 12/10/16 10:01 Cefazolin Sodium/Dextrose 2 gm (/ Premix) 50 mls @ 100 mls/hr IV ONETIME ONE Stop: 12/10/16 09:29 Bupivacaine HCl/Epinephrine Bitart (Sensorc Mpf 0.25%-Epi [id number]) Confirm Administered Dose 60 mls @ as directed .ROUTE .STK-MED ONE Stop: 12/10/16 07:25
[2016-12-10] MEDS ORDERED: Lidocaine 2% 5 ML SDV ONE (11:31)
[2016-12-10] MEDS ORDERED: Propofol 200 MG/20 ML SDV ONE (11:32)
[2016-12-10] MEDS ORDERED: Midazolam 1 MG/ML 2 ML SDV ONE (11:32)
[2016-12-10] MEDS ORDERED: fentaNYL 100 MCG/2 ML SDV ONE ×2 (11:32→13:00)
[2016-12-10] MEDS ORDERED: Sodium Chloride 0.9% 20 ML ONE (11:33)
[2016-12-10] MEDS ORDERED: cefOXitin 1 GM Vial ONE (11:33)
[2016-12-10] MEDS ORDERED: fentaNYL 100 MCG/2 ML SDV IVPUSH PRN (12:44)
[2016-12-10] MEDS ORDERED: HYDROmorphone 2 MG/ML Syringe IVPUSH ONE (12:44)
[2016-12-10] MEDS ORDERED: Octyl 2-Cyanoacrylate 1 Tube ONE (13:17)
[2016-12-10] MEDS ORDERED: traMADol 50 MG Tab PO PRN (13:55)
[2016-12-10] MEDS: fentaNYL 100 MCG/2 ML SDV IVPUSH PRN ×2 (14:03→14:08)
[2016-12-10] MEDS ORDERED: Dermabond Prineo 1 Tube TOP ONE (14:11)
[2016-12-10] MEDS ORDERED: Acetaminophen 1,000 MG in Premix Bag 1 BAG IV ONE (14:21)
[2016-12-10] MEDS ORDERED: Ketorolac 30 MG/ML SDV IM ONE (14:22)
--- NOTE | 2016-12-10 15:03 | PCM.POSTAN ---
POST ANESTHESIA ASSESSMENT - MENTAL STATUS Mental Status: Alert, Oriented - RESPIRATORY Respiratory Status: Respiratory Rate WNL, Airway Patent, O2 Saturation Stable - CARDIOVASCULAR CV Status: Pulse Rate WNL, Blood Pressure Stable - GASTROINTESTINAL GI Status: No Symptoms - POST OP HYDRATION Hydration Status: Adequate & Stable
--- NOTE | 2016-12-10 16:35 | PCM48HPAN ---
Post Anesthesia Note - EVALUATION WITHIN 48HRS OF ANESTHETIC Vital Signs in Normal Range: Yes Patient Participated in Evaluation: Yes Respiratory Function Stable: Yes Airway Patent: Yes Cardiovascular Function Stable: Yes Hydration Status Stable: Yes Pain Control Satisfactory: Yes Nausea and Vomiting Control Satisfactory: Yes Mental Status Recovered: Yes - COMMENTS/OBSERVATIONS Free Text/Narrative:: Mild sore throat complaints with mild headache.
[2016-12-10 18:14] VITALS: BP 116/82
--- NOTE | 2016-12-11 17:09 | PCM.OPNOTE ---
- General Post-Op/Procedure Note Date of Surgery/Procedure: 12/10/16 Operative Procedure(s): abdominal scar revision - complex repair 15cm. Pre Op Diagnosis: abdominal scar with pain Post-Op Diagnosis: Same Anesthesia Technique: General LMA Primary Surgeon: Elena Dhillon Airway Controller: Tiffany Parish Complications: None Condition: Good
--- NOTE | 2016-12-12 20:20 | OR ---
SURGEON: RAFAEL ERWIN MD DATE OF PROCEDURE: 12/10/2016 PREOPERATIVE DIAGNOSIS: Abdominal scar with pain. POSTOPERATIVE DIAGNOSIS: Abdominal scar with pain. PROCEDURE: Abdominal scar revision, complex repair of 15 cm. CLAIM REP: MOISÉS Busby. ANESTHESIA: General and local. INDICATIONS: Obi is a 36-year-old female who unfortunately had an abdominal wound after panniculectomy for excess skin. It is taking a longtime to heal and it is painful for her. We discussed risks and benefits of excision and primary closure and she would like to proceed. Risks were including, but not limited to, bleeding, infection, damage to underlying or overlying structures, possible need for future interventions, and possible scarring. PROCEDURE IN DETAIL: After informed consent was obtained and placed on the chart, the patient was brought to the operating theater and laid in the supine position. After adequate general anesthetic was obtained, the area was prepped and draped and a time-out was completed to confirm side and site. Attention was then paid to markings of the incision itself and approximately 15 cm was marked on the anterior abdomen. Dissection was carried down through the skin using a 15 blade and subcutaneous tissues using Bovie electrocautery. Once adequately carried down to the abdominal fascia, the ellipse of skin was removed. The lower pubic area skin was then secured to the pubic bone using 2-0 PDS sutures. Once this was adequately secured, attention was then paid to closure of the deep fascial area after meticulous hemostasis and irrigation. A 2-0 PDS suture was used to reapproximate the fascia in an interrupted fashion, the dermis was closed using 3-0 Monocryl stitches in an interrupted fashion, and the skin was closed using a 4-0 Monocryl stitch in a running subcuticular fashion. The wound was dressed with Steri-Strips and a small revision was completed on the circular umbilical scar as well. A small z plasty style incision was made just on top of the incision in order to allow re-orientation of the scar tissue to not be circumferential. Once this was completed, the wound was closed using Monocryl stitches and a Dermabond for the skin. The patient tolerated the procedure well and all counts of needles were correct at the end of the case. The wounds were dressed with Steri-Strips, fluffs, and a tape. FOLLOWUP INSTRUCTIONS: The patient will see us next week in clinic, sooner if any problems, questions, or concerns. She was discharged with a prescription for pain control. CHAR / RIC /[id number] MTDD
== END 2016-12-10 10:30 | disposition home or self-care (01) ==
LOC: MW.SDS 10:06
PROVIDERS: ATTEND Plastic Surgery
PROC: 0WW Anatomical Regions, General, Revision (ICD-10-PCS; principal; 2016-12-10)
DX: L90.5 Scar conditions and fibrosis of skin (principal); F41.9 Anxiety disorder, unspecified; L29.9 Pruritus, unspecified; Z98.890 Other specified postprocedural states; Z79.899 Other long term (current) drug therapy; Z98.51 Tubal ligation status
CPT/HCPCS: 13101; 13102; 81025; A9270; J0694; J1170; J2250; J3010; J7120; 00400; J2704

== ENCOUNTER 2021-05-31 16:11 | Inpatient (IN) | payer MEDICAID ==
[2021-05-31] MEDS ORDERED: Sodium Chloride 0.9% 1,000 ML IV ONE (16:44)
[2021-05-31] MEDS ORDERED: Ondansetron 4 MG/2 ML SDV IVPUSH ONE (16:44)
[2021-05-31] MEDS ORDERED: Sodium Chloride 0.9% 2.5 ML Syringe FLUSH PRN (16:44)
[2021-05-31] MEDS ORDERED: Sodium Chloride 0.9% 10 ML Syringe FLUSH PRN (16:44)
[2021-05-31] MEDS ORDERED: Ketorolac 30 MG/ML SDV IVPUSH ONE (16:44)
[2021-05-31] MEDS ORDERED: Acetaminophen 650 MG Supp RECTAL ONE (16:45)
[2021-05-31] MEDS ORDERED: Morphine 4 MG/ML VIAL IVPUSH ONE (16:45)
[2021-05-31] MEDS ORDERED: cefTRIAXone 1 GM in Sodium Chloride 0.9% 50 ML IV ONE (16:59)
[2021-05-31 17:00] LABS: CORONAVIRUS COVID-19 NAA NEGATIVE (NEGATIVE); INFLUENZA A NAA NEGATIVE (NEGATIVE); INFLUENZA B NAA NEGATIVE (NEGATIVE)
[2021-05-31 17:20] LABS: BLOOD UREA NITROGEN,BUN 9 mg/dL (7.0-18.0); CARBON DIOXIDE,CO2 28.7 mmol/L (21.0-32.0); CHLORIDE,CL 102 mmol/L (98-107); ESTIMATED GFR > 60.0 ml/min; GLUCOSE RANDOM 114 mg/dL (74-106); LIPASE 51 U/L (73-393); SODIUM,NA 140 mmol/L (136-145)
[2021-05-31] MEDS ORDERED: Iopamidol 755 MG/ML 500 ML Multipack Bottle IVPUSH ONE (18:02)
[2021-05-31] MEDS ORDERED: Ondansetron 4 MG/2 ML SDV IVPUSH PRN (20:31)
[2021-05-31] MEDS ORDERED: LORazepam 0.5 MG Tab PO PRN (20:44)
[2021-05-31] MEDS ORDERED: Docusate Sodium 100 MG Cap PO PRN (20:44)
[2021-05-31] MEDS: Enoxaparin 40 MG/0.4 ML Syringe SUBCUT SCH (21:42)
[2021-05-31] MEDS: Lactated Ringers 1,000 ML IV SCH (21:42)
[2021-06-01] MEDS: Ketorolac 30 MG/ML SDV IVPUSH PRN ×2 (00:08→15:19)
[2021-06-01] MEDS: Morphine 2 MG/ML SYRINGE IVPUSH PRN ×2 (04:06→12:21)
[2021-06-01 06:22] LABS: BLOOD UREA NITROGEN,BUN 14 mg/dL (7.0-18.0); CARBON DIOXIDE,CO2 29.4 mmol/L (21.0-32.0); CHLORIDE,CL 105 mmol/L (98-107); ESTIMATED GFR > 60.0 ml/min; GLUCOSE RANDOM 106 mg/dL (74-106); POTASSIUM,K 4.3 mmol/L (3.5-5.1); SODIUM,NA 141 mmol/L (136-145)
[2021-06-01] MEDS: Lactated Ringers 1,000 ML IV SCH ×2 (06:48→22:09)
[2021-06-01] MEDS: cefTRIAXone 1 GM in Sodium Chloride 0.9% 50 ML IV SCH (09:24)
[2021-06-01] MEDS: Pantoprazole 40 MG in Sodium Chloride 0.9% 10 ML IVPUSH SCH (09:25)
[2021-06-01] MEDS: Enoxaparin 40 MG/0.4 ML Syringe SUBCUT SCH (20:23)
[2021-06-02] MEDS: Morphine 2 MG/ML SYRINGE IVPUSH PRN ×2 (04:40→20:06)
[2021-06-02] MEDS: Acetaminophen 325 MG Tab PO PRN (06:10)
[2021-06-02 06:58] LABS: BLOOD UREA NITROGEN,BUN 12 mg/dL (7.0-18.0); CARBON DIOXIDE,CO2 27.4 mmol/L (21.0-32.0); CHLORIDE,CL 103 mmol/L (98-107); ESTIMATED GFR > 60.0 ml/min; GLUCOSE RANDOM 131 mg/dL (74-106); POTASSIUM,K 4.3 mmol/L (3.5-5.1); SODIUM,NA 138 mmol/L (136-145)
[2021-06-02] MEDS: amLODIPine 5 MG Tab PO SCH (08:31)
[2021-06-02] MEDS: cefTRIAXone 1 GM in Sodium Chloride 0.9% 50 ML IV SCH (08:31)
[2021-06-02] MEDS: Pantoprazole 40 MG in Sodium Chloride 0.9% 10 ML IVPUSH SCH (08:31)
[2021-06-02] MEDS: Enoxaparin 40 MG/0.4 ML Syringe SUBCUT SCH (20:06)
[2021-06-02] MEDS: Lactated Ringers 1,000 ML IV SCH (20:07)
[2021-06-03] MEDS: Morphine 2 MG/ML SYRINGE IVPUSH PRN (04:08)
[2021-06-03] MEDS: Lactated Ringers 1,000 ML IV SCH ×3 (04:10→23:31)
[2021-06-03 06:21] LABS: BLOOD UREA NITROGEN,BUN 13 mg/dL (7.0-18.0); CARBON DIOXIDE,CO2 27.9 mmol/L (21.0-32.0); CHLORIDE,CL 101 mmol/L (98-107); ESTIMATED GFR > 60.0 ml/min; GLUCOSE RANDOM 100 mg/dL (74-106); SODIUM,NA 138 mmol/L (136-145)
[2021-06-03] MEDS: cefTRIAXone 1 GM in Sodium Chloride 0.9% 50 ML IV SCH (08:09)
[2021-06-03] MEDS: Pantoprazole 40 MG Tab.CR PO SCH (08:10)
[2021-06-03] MEDS: amLODIPine 5 MG Tab PO SCH (08:10)
[2021-06-03] MEDS ORDERED: Iopamidol 755 MG/ML 500 ML Multipack Bottle IVPUSH STA (10:28)
[2021-06-03] MEDS ORDERED: Bisacodyl 10 MG Supp RECTAL ONE (12:01)
[2021-06-03] MEDS ORDERED: Polyethylene Glycol 3350 Powder 17 GM Packet PO ONE (12:29)
[2021-06-03] MEDS: Acetaminophen 325 MG Tab PO PRN (12:53)
[2021-06-03] MEDS: Docusate Sodium 100 MG Cap PO SCH ×2 (12:53→20:12)
[2021-06-03] MEDS: Enoxaparin 40 MG/0.4 ML Syringe SUBCUT SCH (20:13)
[2021-06-03] MEDS: Ketorolac 30 MG/ML SDV IVPUSH PRN (23:29)
[2021-06-04 06:37] LABS: BLOOD UREA NITROGEN,BUN 13 mg/dL (7.0-18.0); CHLORIDE,CL 103 mmol/L (98-107); ESTIMATED GFR > 60.0 ml/min; GLUCOSE RANDOM 126 mg/dL (74-106); POTASSIUM,K 3.7 mmol/L (3.5-5.1); SODIUM,NA 140 mmol/L (136-145)
[2021-06-04] MEDS: Lactated Ringers 1,000 ML IV SCH (07:34)
[2021-06-04] MEDS: Pantoprazole 40 MG Tab.CR PO SCH (09:04)
[2021-06-04] MEDS: Docusate Sodium 100 MG Cap PO SCH (09:04)
[2021-06-04] MEDS: amLODIPine 5 MG Tab PO SCH (09:04)
[2021-06-04] MEDS: cefTRIAXone 1 GM in Sodium Chloride 0.9% 50 ML IV SCH (09:05)
[2021-06-04 11:49] VITALS: BP 142/88; PULSE 77
[2021-06-04] MEDS ORDERED: Loratadine 10 MG Tab PO ONE (13:23)
[2021-06-04] MEDS ORDERED: diphenhydrAMINE 12.5 MG/5 ML Liquid 5 ML UD Cup PO ONE (13:23)
== END 2021-06-04 14:05 | disposition home or self-care (01) | DRG 872 ==
LOC: MW.ED 16:11 → MW.MS 18:27
PROVIDERS: ADMIT Student in an Organized Health Care Education/Training Program; ATTEND Student in an Organized Health Care Education/Training Program
DX: A41.51 Sepsis due to Escherichia coli [E. coli] (principal); Z97.3 Presence of spectacles and contact lenses; N10 Acute pyelonephritis; K59.09 Other constipation; F41.9 Anxiety disorder, unspecified; E66.9 Obesity, unspecified; D64.9 Anemia, unspecified; Z20.822 Contact with and (suspected) exposure to COVID-19; Z79.899 Other long term (current) drug therapy; G89.29 Other chronic pain; M54.9 Dorsalgia, unspecified; Z91.048 Other nonmedicinal substance allergy status; Z98.51 Tubal ligation status; Z91.041 Radiographic dye allergy status; Z88.8 Allergy status to other drugs, medicaments and biological substances; Z68.37 Body mass index [BMI] 37.0-37.9, adult
CPT/HCPCS: 0240U; 36415; 74177; 74178; 80048; 80053; 81001; 82947; 83605; 83690; 83735; 84100; 85025; 87040; 87086; 87088; 87186; 96365; 96375; 99285; 99221; 99231; 99232; 99238; 99284; A9270-GY; C9113; J0696; J1650; J1885; J2270; J2405; J3490; J7030; J7120; Q9967

== ENCOUNTER 2022-07-14 06:52 | Day surgery (SDC) | payer MEDICAID ==
[~2022-07-14 06:52] MED LIST changes: -Bupivacaine 0.25%/EPINEPHrine 1:200,000 10 ML SDV INJECT ONE; -Bupivacaine 25%/EPINEPHrine/PF 30 ML ONE; -ceFAZolin 2 GM in Premix Bag 1 BAG IV ONE
[2022-07-14] MEDS ORDERED: Naloxone 0.4 MG/ML SDV IVPUSH PRN (06:59)
[2022-07-14] MEDS ORDERED: HYDROmorphone 1 MG/ML Syringe IVPUSH PRN (06:59)
[2022-07-14] MEDS ORDERED: fentaNYL 50 MCG/ML SDV IVPUSH PRN (06:59)
[2022-07-14] MEDS ORDERED: Albuterol 0.083% 2.5 MG/3 ML Neb Soln NEB PRN (06:59)
[2022-07-14] MEDS ORDERED: Morphine 2 MG/ML SYRINGE IVPUSH PRN (06:59)
[2022-07-14] MEDS ORDERED: Metoclopramide 10 MG/2 ML SDV IVPUSH PRN (06:59)
[2022-07-14] MEDS ORDERED: droPERidol 5 MG/2 ML SDV IVPUSH PRN (06:59)
[2022-07-14] MEDS ORDERED: Ondansetron 4 MG/2 ML SDV IVPUSH PRN (06:59)
[2022-07-14] MEDS ORDERED: propofoL 50 ML ONE (07:32)
[2022-07-14] MEDS ORDERED: Propofol 200 MG/20 ML SDV ONE (07:33)
[2022-07-14] MEDS ORDERED: fentaNYL 100 MCG/2 ML SDV ONE (07:33)
[2022-07-14 07:49] LABS: CARBON DIOXIDE,CO2 27.7 mmol/L (21.0-32.0)
[2022-07-14] MEDS ORDERED: Dexamethasone 4 MG/ML 5 ML MDV ONE (09:56)
[2022-07-14] MEDS ORDERED: Ketorolac 30 MG/ML SDV ONE (09:56)
[2022-07-14] MEDS ORDERED: Ondansetron 4 MG/2 ML SDV ONE (09:56)
[2022-07-14] MEDS ORDERED: Famotidine 20 MG/2 ML SDV IVPUSH ONE (13:10)
[2022-07-14 15:08] VITALS: BP 129/82; PULSE 81
== END 2022-07-14 15:36 | disposition home or self-care (01) ==
LOC: MW.SDS 06:52
PROVIDERS: ATTEND Obstetrics & Gynecology
DX: N92.0 Excessive and frequent menstruation with regular cycle (principal); D50.0 Iron deficiency anemia secondary to blood loss (chronic); N94.6 Dysmenorrhea, unspecified; E03.9 Hypothyroidism, unspecified; Z79.899 Other long term (current) drug therapy
CPT/HCPCS: 36415; 58563; 80053; 81025; 85027; J0131; J1100; J1885; J2270; J2405; J2704; J2765; J3010; J3490; J7120; 00952

== ENCOUNTER 2024-10-28 15:01 | Emergency (ER) | payer MEDICAID ==
[2024-10-28 15:22] VITALS: BP 194/106; PULSE 71
[2024-10-28 15:58] LABS: BASOPHILS ABSOLUTE AUTO 0.05 K/uL (0.00-0.20); BASOPHILS PERCENT AUTO 0.5 % (0.0-1.0); EOSINOPHILS ABSOLUTE AUTO 0.22 K/uL (0.00-0.45); EOSINOPHILS PERCENT AUTO 2.4 % (0.0-6.0); IMMATURE GRAN ABSOLUTE AUTO 0.03 K/uL (0.00-0.05); IMMATURE GRAN PERCENT AUTO 0.3 % (0.0-0.4); LYMPHOCYTES ABSOLUTE AUTO 2.03 K/uL (1.00-4.80); LYMPHOCYTES PERCENT AUTO 22.1 % (24.0-44.0); MEAN PLATELET VOLUME 8.7 fL (9.4-12.3); MONOCYTES ABSOLUTE AUTO 0.58 K/uL (0.00-0.80); MONOCYTES PERCENT AUTO 6.3 % (0.0-8.0); NEUTROPHILS ABSOLUTE AUTO 6.27 K/uL (1.80-7.70); NEUTROPHILS PERCENT AUTO 68.4 % (41.0-71.0); NRBC ABSOLUTE 0.00 K/uL (0.00-0.02); NRBC PERCENT 0.0 /100WBC (0.0-0.2); PLATELET COUNT,PLT 262 K/uL (150-400); RED BLOOD CELL COUNT 5.62 M/uL (4.10-5.30); WHITE BLOOD CELL COUNT,WBC 9.18 K/uL (3.9-11.3)
[2024-10-28 16:20] LABS: A/G RATIO 0.7 (0.9-1.6); ALANINE AMINOTRANSFERASE,ALT 23 IU/L (14-63); ASPARTATE AMNIOTRANSFERASE,AST 13 IU/L (15-37); BILIRUBIN TOTAL 0.2 mg/dL (0.2-1.0); BLOOD UREA NITROGEN,BUN 16 mg/dL (7.0-18.0); CARBON DIOXIDE,CO2 27.7 mmol/L (21.0-32.0); CHLORIDE,CL 101 mmol/L (98-107); CREATININE 0.9 mg/dL (0.6-1.0); GLUCOSE RANDOM 88 mg/dL (74-106); POTASSIUM,K 4.0 mmol/L (3.5-5.1); PROTEIN TOTAL,TP 7.8 g/dL (6.4-8.2); SODIUM,NA 138 mmol/L (136-145)
[2024-10-28 16:22] LABS: ESTIMATED GFR 82 mL/min (>60)
[2024-10-28 17:22] LABS: APPEARANCE,URINE CLEAR; GLUCOSE,URINE NEGATIVE (NEGATIVE); OCCULT BLOOD,URINE NEGATIVE (NEGATIVE)
== END 2024-10-28 18:31 | disposition home or self-care (01) ==
LOC: MW.ED 15:01
DX: D25.9 Leiomyoma of uterus, unspecified (principal); N93.8 Other specified abnormal uterine and vaginal bleeding; E03.9 Hypothyroidism, unspecified; Z75.3 Unavailability and inaccessibility of health-care facilities; Z91.041 Radiographic dye allergy status; Z91.048 Other nonmedicinal substance allergy status; Z79.890 Hormone replacement therapy; Z79.899 Other long term (current) drug therapy
CPT/HCPCS: 36415; 76830; 76830-26; 76856; 76856-26; 80053; 81003; 83690; 84703; 85025; 99283; 99284

== ENCOUNTER 2024-11-15 16:17 | Emergency (ER) | payer MEDICAID ==
[2024-11-15 17:56] LABS: BASOPHILS ABSOLUTE AUTO 0.04 K/uL (0.00-0.20); BASOPHILS PERCENT AUTO 0.5 % (0.0-1.0); EOSINOPHILS ABSOLUTE AUTO 0.19 K/uL (0.00-0.45); EOSINOPHILS PERCENT AUTO 2.2 % (0.0-6.0); IMMATURE GRAN ABSOLUTE AUTO 0.02 K/uL (0.00-0.05); IMMATURE GRAN PERCENT AUTO 0.2 % (0.0-0.4); LYMPHOCYTES ABSOLUTE AUTO 1.77 K/uL (1.00-4.80); LYMPHOCYTES PERCENT AUTO 20.6 % (24.0-44.0); MEAN PLATELET VOLUME 9.3 fL (9.4-12.3); MONOCYTES ABSOLUTE AUTO 0.67 K/uL (0.00-0.80); MONOCYTES PERCENT AUTO 7.8 % (0.0-8.0); NEUTROPHILS ABSOLUTE AUTO 5.92 K/uL (1.80-7.70); NEUTROPHILS PERCENT AUTO 68.7 % (41.0-71.0); NRBC ABSOLUTE 0.00 K/uL (0.00-0.02); NRBC PERCENT 0.0 /100WBC (0.0-0.2); PLATELET COUNT,PLT 312 K/uL (150-400); RED BLOOD CELL COUNT 5.72 M/uL (4.10-5.30); WHITE BLOOD CELL COUNT,WBC 8.61 K/uL (3.9-11.3)
[2024-11-15] MEDS: Ketorolac 30 MG/ML SDV IVPUSH ONE (18:05)
[2024-11-15 18:30] LABS: A/G RATIO 0.7 (0.9-1.6); ALANINE AMINOTRANSFERASE,ALT 39.0 IU/L (14-63); ASPARTATE AMNIOTRANSFERASE,AST 29.0 IU/L (15-37); BILIRUBIN TOTAL 0.3 mg/dL (0.2-1.0); BLOOD UREA NITROGEN,BUN 13.0 mg/dL (7.0-18.0); CARBON DIOXIDE,CO2 28.9 mmol/L (21.0-32.0); CHLORIDE,CL 102.0 mmol/L (98-107); CREATININE 0.9 mg/dL (0.6-1.0); EST CRCL DRUG DOSING (CG) 70.32 mL/min; GLUCOSE RANDOM 98.0 mg/dL (74-106); POTASSIUM,K 3.8 mmol/L (3.5-5.1); PROTEIN TOTAL,TP 8.0 g/dL (6.4-8.2); SODIUM,NA 139.0 mmol/L (136-145)
[2024-11-15 18:32] LABS: ESTIMATED GFR 82.0 mL/min (>60)
[2024-11-15 19:08] LABS: APPEARANCE,URINE CLEAR; GLUCOSE,URINE NEGATIVE (NEGATIVE); OCCULT BLOOD,URINE TRACE-INTACT (NEGATIVE)
[2024-11-15 19:22] LABS: EPITHELIAL CELLS,URINE NOT SEEN (NONE-FEW)
[2024-11-15 21:01] VITALS: BP 177/98; PULSE 79
== END 2024-11-15 21:01 | disposition home or self-care (01) ==
LOC: MW.ED 16:17
DX: R10.2 Pelvic and perineal pain (principal); E03.9 Hypothyroidism, unspecified; Z91.041 Radiographic dye allergy status; Z88.5 Allergy status to narcotic agent; Z79.890 Hormone replacement therapy; Z79.899 Other long term (current) drug therapy
CPT/HCPCS: 36415; 76830; 80053; 81001; 84703; 85025; 96361; 96374; 99284; J1885; J7030